=== PATIENT | female | born 2000 | race Caucasian/White ===

== ENCOUNTER 2019-04-03 14:13 | Emergency (ER) | payer MEDICAID ==
[~2019-04-03] VITALS: Ht 160 cm; Wt 66.2 kg
[2019-04-03 14:31] VITALS: Ht 160 cm; Wt 66.2 kg
[2019-04-03 14:59] LABS: BASOPHIL % 1.1 % (0-2); PLATELET COUNT 307 x10^3mcL (130-400)
[2019-04-03 16:25] LABS: UA SPECIFIC GRAVITY 1.025 (1.005-1.035); microscopic required? YES; urine erythrocyte 3+ (NEGATIVE)
[2019-04-03 17:26] VITALS: BP 130/72
== END 2019-04-03 17:26 | disposition home or self-care (01) ==
LOC: ED 14:13
PROVIDERS: Emergency Medicine
DX: O20.0 Threatened abortion (principal); Z88.0 Allergy status to penicillin
CPT/HCPCS: 36415

== ENCOUNTER 2019-04-04 00:41 | Emergency (ER) | payer MEDICAID ==
[~2019-04-04] VITALS: Ht 160 cm; Wt 66.2 kg
[2019-04-04 00:46] VITALS: Ht 160 cm; Wt 66.2 kg
[2019-04-04 03:03] LABS: UA SPECIFIC GRAVITY 1.025 (1.005-1.035); microscopic required? YES; urine erythrocyte 3+ (NEGATIVE)
[2019-04-04 04:01] VITALS: BP 107/57
== END 2019-04-04 04:01 | disposition home or self-care (01) ==
LOC: ED 00:41
PROVIDERS: Emergency Medicine
DX: O02.1 Missed abortion (principal); Z3A.08 8 weeks gestation of pregnancy; Z88.0 Allergy status to penicillin
CPT/HCPCS: J1885

== ENCOUNTER 2019-06-05 20:09 | Emergency (ER) | payer MEDICAID ==
[~2019-06-05] VITALS: Ht 165.1 cm; Wt 69.4 kg
[2019-06-05 20:15] VITALS: BP 118/62; Ht 165.1 cm; Wt 69.4 kg
== END 2019-06-05 21:52 | disposition home or self-care (01) ==
LOC: ED 20:09
DX: G43.909 Migraine, unspecified, not intractable, without status migrainosus (principal); Z88.0 Allergy status to penicillin
CPT/HCPCS: 87804; J1885; J2765